=== PATIENT | female | born 1970 | race Caucasian/White ===

== ENCOUNTER 2016-12-10 17:02 | Emergency (ER) | payer BC, OTHER ==
[~2016-12-10] VITALS: Ht 177.8 cm; Wt 110.2 kg
[~2016-12-10 17:02] MED LIST: LISI-729 PO; METO25TA3 PO; SULI200T4 PO; VENL150C PO
[2016-12-10 17:04] VITALS: TEMP 36.8; Ht 177.8 cm; Wt 110.2 kg
--- NOTE | 2016-12-10 17:31 | EMERGENCY ROOM VISIT NOTE ---
History Report prepared by Huan: Kezia Solorzano Under the Supervision of: Dr. Jamir Farnsworth M.D. First contact with patient: 17:12 Chief Complaint: CARDIAC ASSESSMENT Stated Complaint: ACHEY CHEST/STERNUM Nursing Triage Summary: pt to the ED with c/o substernal chest pain today that goes down her chest no SOB no dizziness no n/v pt had ekg done yesterday History of Present Illness The patient is a 46 year old female who presents to the Emergency Room with complaints of persistent concern over an abnormal EKG earlier today. She saw her head animal keeper yesterday and had an EKG. She saw the report online which said that there was a septal infarct. She was unable to get in contact with her head animal keeper and came to the ED because she was concerned. She has been having intermittent chest pain since August 2015. She has been following with cardiology since. She has had stress tests and been monitored with a Holter monitor. In September 2015, she had a CT scan which revealed 2 spots of plaque. She denies any LOC or change in her chest pain. Her chest is currently aching which is normal for her. Source of History: patient Onset: earlier today Position: other (cardiac) Quality: other (abnormal EKG) Timing: other (persistent) Associated Symptoms: + chest pain, No LOC Review of Systems See HPI for pertinent positives & negatives. A total of 10 systems reviewed and were otherwise negative. Past Medical & Surgical Medical Problems: (1) Depression (2) Hypertension (3) Left ventricular hypertrophy Family History No pertinent family history stated. Social History Smoking Status: Never Smoker Marital Status: Housing Status: lives with family Occupation Status: employed Current/Historical Medications Scheduled Metoprolol Succ (Toprol Xl) (Toprol-Xl ), 200 MG PO DAILY Venlafaxine Hcl (Effexor Xr), 300 MG PO DAILY Allergies Coded Allergies: No Known Allergies (Unverified , 12/10/16) Physical Exam Vital Signs Date Time Temp Pulse Resp B/P Pulse Ox O2 Delivery O2 Flow Rate FiO2 12/10/16 18:31 76 18 144/98 96 12/10/16 17:04 36.8 87 16 170/109 98 Room Air Physical Exam GENERAL: Patient is very anxious appearing, periodically crying, and in no acute distress. HEENT: No acute trauma, normocephalic atraumatic, mucous membranes moist, no nasal congestion, no scleral icterus. NECK: No stridor, no adenopathy, no meningismus, trachea is midline. LUNGS: No dyspnea. Clear to auscultation and equal bilaterally. No wheeze, no rhonchi. HEART: Regular rate and rhythm. No murmurs, rubs, gallops appreciated. ABDOMEN: Soft, nontender, bowel sounds positive, no masses appreciated, no peritonitis. BACK: No midline tenderness, no CVA tenderness EXTREMITIES: Normal motion all extremities, no cyanosis, no edema. NEUROLOGIC: Alert and oriented, no acute motor or sensory deficits, no focal weakness, cranial nerves grossly intact. SKIN: No rash, no jaundice, no diaphoresis. Medical Decision & Procedures Laboratory Results Test 12/10/16 17:30 Bedside Troponin I 0.000 ng/ml (0-0.045) Laboratory results as reviewed by me. ECG Indication: chest pain Rate (beats per minute): 83 Rhythm: normal sinus Findings: no acute ischemic change, no ectopy, other (nonspecific T-wave abnormality) Comparison ECG Date: 17-Dec-2015 Change: Morphology is generally the same. ED Course 171: The patient was evaluated in room B4. A complete history and physical exam was performed. 1804: I discussed the patient's case with Dr. Duncan, [facility]. He states there is no evidence of acute ischemia on the EKG. He is agreeable to the patient being discharged home. 1805: I reevaluated the patient. She is resting comfortably. She is much relieved after our discussion. I discussed results and discharge instructions: She verbalized understanding and agreement. The patient is ready for discharge. Medical Decision Differential: Cardiac Ischemia (STEMI, NSTEMI, Unstable Angina, etc), Aortic Dissection, Arrhythmia, Pulmonary Embolism, Pneumonia, Pneumothorax, MSK, Infectious, Pericarditis/Myocarditis, Esophageal Rupture, Gastrointestinal, amongst other pathologies entertained. 46 yr old female arrives with complaint of chest pain for the last 1.5 years. Arrives because her medical web portal result for EKG said she had septal infarct. EKG similar here to previous. Trop negative. CTs in past are negative. No PE/Dissection findings. She is stable and feeling much relieved. Did touch base with [facility] head animal keeper as well. Consults Time Called: 1754 Consulting Physician: Dr. Duncan [facility] Returned Call: [phone] I discussed the patient's case with him. He states there is no evidence of acute ischemia on the EKG. He is agreeable to the patient being discharged home. Impression Primary Impression: Substernal chest pain Scribe Attestation The scribe's documentation has been prepared under my direction and personally reviewed by me in its entirety. I confirm that the note above accurately reflects all work, treatment, procedures, and medical decision making performed by me. Departure Information Dispostion Home / Self-Care Referrals Lydia Draper M.D. (PCP) Patient Instructions ED Chest Pain Atypical Unkn Cause, My [facility]
[2016-12-10] MEDS ORDERED: METO100T44 PO (18:08)
[2016-12-10 18:31] VITALS: BP 144/98; PULSE 76; O2SAT 96
== END 2016-12-10 18:33 | disposition home or self-care (01) ==
LOC: C.EDB 17:03
DX: R07.89 Other chest pain (principal); I10 Essential (primary) hypertension; I51.7 Cardiomegaly; Z79.899 Other long term (current) drug therapy

== ENCOUNTER 2024-04-09 06:32 | Observation (INO) ==
--- NOTE | 2024-03-02 09:46 | PAT Medication Instructions ---
Medication Instructions Date of Service March 02, 2024 Home Medications Medication Instructions Recorded oxycodone 5 mg tablet 5 mg PO Q6 PRN pain #15 tabs 10/01/23 meloxicam 15 mg tablet 15 mg PO DAILY #30 tabs 01/20/24 Medication List: metoprolol succinate 200 mg tablet,extended release 24 hr 200 mg PO QAM modafinil 100 mg tablet 200 mg PO DAILY PRN Drowsiness venlafaxine 150 mg tablet,extended release 24 hr 300 mg PO QAM lisinopril 10 mg tablet 10 mg PO QAM valacyclovir 500 mg tablet 500 mg PO QAM PRN cold sores oxycodone 5 mg tablet 5 mg PO Q6 PRN pain meloxicam 15 mg tablet 15 mg PO DAILY dicyclomine 10 mg capsule 10 mg PO BID PRN Abdominal Pain MEDICATION INSTRUCTIONS: ASK your surgeon for instructions meloxicam 15 mg tablet 15 mg PO DAILY DO NOT take the morning of surgery modafinil 100 mg tablet 200 mg PO DAILY PRN Drowsiness lisinopril 10 mg tablet 10 mg PO QAM dicyclomine 10 mg capsule 10 mg PO BID PRN Abdominal Pain Take morning of surgery With a small sip of water, OTHERWISE NOTHING TO EAT OR DRINK AFTER MIDNIGHT: venlafaxine 150 mg tablet,extended release 24 hr 300 mg PO QAM metoprolol succinate 200 mg tablet,extended release 24 hr 200 mg PO QAM valacyclovir 500 mg tablet 500 mg PO QAM PRN cold sores oxycodone 5 mg tablet 5 mg PO Q6 PRN pain Take evening before surgery valacyclovir 500 mg tablet 500 mg PO QAM PRN cold sores oxycodone 5 mg tablet 5 mg PO Q6 PRN pain Other Notes If you have any questions please call us at [phone] or [phone] or [phone] or [phone]
--- NOTE | 2024-03-15 14:32 | Anesthesiology Consultation ---
Date of Service March 15, 2024 Assessment & Plan (1) Encounter for pre-operative examination: - Infectious disease screening: Per assessment on 03/15/24: No known recent infectious disease contacts or current infectious disease symptoms. - Outpatient joint assessment: Pt currently scheduled for inpatient pathway. If surgeon requests review for outpatient joint pathway, patient is not recommended candidate for outpatient joint program from anesthesia standpoint based on available information. Chart Review Chart Review: Acceptable Risk for Surgery and Patient seen in Pre Admission Testing Teaching & Discussion Pre-Anesthesia Teaching/Discussion Notes: Instructed NPO after midnight before surgery,except medications with 15 cc of water. Medication instructions provided according to the PAT guidelines. History Surgery Operation Date: 04/09/24 10:10 Proposed Procedures p Right Total Knee Arthroplasty - Zbigniew Trinh, Height/Weight Height: 5 ft 10 in Weight: 114.6 kg Allergies Allergy/AdvReac Type Severity Reaction Status Date / Time nickel Allergy Mild Skin Verified 03/10/24 13:09 redness Medications Home Medications Medication Instructions Recorded Confirmed Last Taken metoprolol succinate 200 mg 200 mg PO QAM 07/07/18 02/27/24 10/01/23 06:00 tablet,extended release 24 hr modafinil 100 mg tablet 200 mg PO DAILY PRN Drowsiness 07/07/18 02/27/24 10/01/23 06:00 venlafaxine 150 mg tablet,extended 300 mg PO QAM 07/07/18 02/27/24 10/01/23 06:00 release 24 hr lisinopril 10 mg tablet 10 mg PO QAM 07/22/19 02/27/24 10/01/23 06:00 valacyclovir 500 mg tablet 500 mg PO QAM PRN cold sores 09/08/23 02/27/24 10/01/23 06:00 oxycodone 5 mg tablet 5 mg PO Q6 PRN pain #15 tabs 10/01/23 02/27/24 Unknown meloxicam 15 mg tablet 15 mg PO DAILY #30 tabs 01/20/24 02/27/24 Unknown dicyclomine 10 mg capsule 10 mg PO BID PRN Abdominal Pain 02/27/24 02/27/24 Unknown Past Medical History Medical History Depression GERD (gastroesophageal reflux disease) occasional - OTC prn History of COVID-19 09/2021- symptoms resolved History of ventricular tachycardia 5 beats noted on 2021 ZioPatch monitor F/u with EP as needed per 11/2022 EP evaluation HTN (hypertension) Hx of supraventricular tachycardia Controlled with beta julio F/u with EP as needed per 11/2022 EP evaluation Idiopathic hypersomnia Modafinil PRN Left ventricular hypertrophy Follows with Dr. Guerrero ([place]) Echo 2019: "Mild hypertrophy" Obesity Sleep apnea CPAP (compliant) Exercise / Class Metabolic Activity III < 4 Walking/Shop/Light housework (one FS: No CP, + SOB) Past Family History Family History Other No family history of adverse response to anesthesia Past Surgical History Surgical History History of arthroscopic surgery of elbow Left History of cholecystectomy History of colonoscopy History of surgery Left Long Finger Excision of Mucous Cyst (07/27/19): MAC at [facility] [place] History of tenotomy (10/01/23) percutaneous, left achilles, [facility] Hx of basal cell carcinoma excision Hx of wisdom tooth extraction Past Anesthesia History No Hx of Anesthesia Complications * Daughter: "very ill" post-op History of PONV No Hx of PONV and Hx of Motion Sickness (occasional) Social History Smoking Status: Never smoker Do You Dip or Chew Tobacco: No Hx Alcohol Use: Yes Alcohol type: wine (once per week) Hx Substance Use: No substance use type: does not use Review of Systems Intermittent palpitations. Patient denies chest pain, shortness of breath, fever, chills, cough, wheezing. Physical Exam Vital Signs BP 110/75 P 84 TEMP 98.0 SP02 96%RA RESP 18 Physical Full cervical extension range of motion. Full TMJ range of motion. TMD > 3.5 finger breaths Mallampati Score I Dentition: intact Lungs: clear throughout to auscultation Cardiac: regular rate and rhythm, no murmurs noted Spine: normal Carotid arteries: negative bruit Extremities: no LE edema Lab Results Anesthesia Preop Results Results Anesthesia Widget: WBC 5.27 K/ul (4.8-10.8) 03/15/24 Hgb 13.9 g/dl (12.0-16.0) 03/15/24 Hct 41.4 % (37.0-47.0) 03/15/24 Plt 260 K/uL (130-400) 03/15/24 Na 141 mmol/L (136-145) 03/15/24 K 4.4 mmol/L (3.5-5.1) 03/15/24 Cl 105 mmol/L (98-107) 03/15/24 CO2 28 mmol/L (21-32) 03/15/24 BUN 20 mg/dl (6-23) 03/15/24 Creat 0.89 mg/dl (0.6-1.2) 03/15/24 Glucose Level 133 mg/dl (70-99(Fasting)) H 03/15/24 PT 10.6 Seconds (9.0-12.0) 03/15/24 PTT 24 Seconds (21-31) 03/15/24 INR 1.0 (0.9-1.1) 03/15/24 Blood Type O Positive 03/15/24 Antibody Screen NEGATIVE 03/15/24 Testing Electrocardiogram Date: 03/15/24 NSR at 78bpm. NS TWA. No significant change compared to 07/07/2018 per strip roller comparison. Chest X-Ray Date: 03/15/24 Findings: + NAD Echocardiogram Date: 2019 "NA in 2019 showed EF of 65-70% with mild hypertrophy and grade I diastolic dysfunction." per 11/2022 EP office visit note (attempts to obtain official report unsuccessful)
--- NOTE | 2024-04-08 11:01 | History & Physical Report ---
Date of Service April 08, 2024 Assessment & Plan (1) Osteoarthritis of right knee: We will proceed with a right total knee arthroplasty. Postoperatively she will be started on aspirin for DVT prophylaxis and kept overnight in the hospital for postop medical management. She plans to use [facility] for therapy upon discharge. History of Present Illness Chief Complaint: Osteoarthritis of the right knee. Primary Care Provider: Suri Osorio MD Rachael is a pleasant 53-year-old female who has been dealing with chronic increasing right knee pain. 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 Her knee has been bothering her for 10 years. She has failed conservative treatment including injections and therapy. After failing extensive conservative treatment, she has elected proceed with a right total knee arthroplasty. Allergies Allergy/AdvReac Type Severity Reaction Status Date / Time nickel Allergy Mild Skin Verified 03/10/24 13:09 redness Home Medications Medication Instructions Recorded Confirmed Type metoprolol succinate 200 mg 200 mg PO QAM 07/07/18 02/27/24 History tablet,extended release 24 hr modafinil 100 mg tablet 200 mg PO DAILY PRN Drowsiness 07/07/18 02/27/24 History venlafaxine 150 mg tablet,extended 300 mg PO QAM 07/07/18 02/27/24 History release 24 hr lisinopril 10 mg tablet 10 mg PO QAM 07/22/19 02/27/24 History valacyclovir 500 mg tablet 500 mg PO QAM PRN cold sores 09/08/23 02/27/24 History oxycodone 5 mg tablet 5 mg PO Q6 PRN pain #15 tabs 10/01/23 02/27/24 Rx meloxicam 15 mg tablet 15 mg PO DAILY #30 tabs 01/20/24 02/27/24 Rx dicyclomine 10 mg capsule 10 mg PO BID PRN Abdominal Pain 02/27/24 02/27/24 History Past Med/Surg History Problem List (Updated 04/08/24 @ 11:01 by Zbigniew Trinh DO) Osteoarthritis of right knee Encounter for pre-operative examination Depression Hypertension Medical History History of ventricular tachycardia 5 beats noted on 2021 ZioPatch monitor F/u with EP as needed per 11/2022 EP evaluation Idiopathic hypersomnia Modafinil PRN Obesity Left ventricular hypertrophy Follows with Dr. Guerrero ([place]) Echo 2019: "Mild hypertrophy" HTN (hypertension) Depression Hx of supraventricular tachycardia Controlled with beta julio F/u with EP as needed per 11/2022 EP evaluation History of COVID-19 09/2021- symptoms resolved GERD (gastroesophageal reflux disease) occasional - OTC prn Sleep apnea CPAP (compliant) Surgical History History of surgery Left Long Finger Excision of Mucous Cyst (07/27/19): MAC at [facility] [place] History of tenotomy (10/01/23) percutaneous, left achilles, [facility] Hx of basal cell carcinoma excision Hx of wisdom tooth extraction History of arthroscopic surgery of elbow Left History of cholecystectomy History of colonoscopy Family History Other No family history of adverse response to anesthesia Social History Smoking Status: Never smoker Second Hand Exposure: No; Do You Dip or Chew Tobacco: No; Tobacco Cessation Education Requested by Patient: No Hx Alcohol Use: Yes Alcohol type: wine (once per week) Hx Substance Use: No Preferred Language: Argentine Communication Ability: Effective Thermostat Machine Tender Required: No Beliefs That Will Affect Care: None Current Living Situation: Spouse and Family Other Information That Helps Us Care for You: No Feels Safe at Home: Yes Safety Concerns: Feels Safe At This Time Assistive Devices: CPAP and Glasses Review of Systems All systems reviewed & are unremarkable except as noted in HPI & below. Physical Exam On physical examination of the right knee, she has good range of motion 0-120 Trae. She has tenderness palpation of the distal femoral condyle.. Constitutional WD/WN, vitals as above Eyes PERRL, conjunctivae normal, anicteric sclerae ENMT external ear and nose normal, oropharynx normal Neck trachea midline, no thyromegaly Respiratory normal respiratory effort Cardiovascular RRR, no murmur, no edema Gastrointestinal (Abdomen) normal bowel sounds, soft, nontender, no hepatosplenomegaly Psychiatric A+Ox3, euthymic affect Results & Data Results & Data Laboratory Results . Diagnostic Findings X-rays of the right knee show advanced osteoarthritis with joint space narrowing, osteophyte formation, and [id number] tubulation. PG Care Time/CCT Total # of Minutes Spent Total Time Spent with Patient: Total time spent is greater than 50% in coordination of care (as documented) at patient's floor/unit and/or counseling patient: Coding Level of Care Code None Diagnoses Osteoarthritis of right knee M17.11
[~2024-04-09 06:32] MED LIST changes: +BUPIVACAINE 0.25% PF 30 ML VIAL ONE; +BUPIVACAINE 0.5 % 5 MG/1 ML PF 10ML VIAL ONE; -LISI-729 PO; -METO25TA3 PO; -SULI200T4 PO; -VENL150C PO
--- NOTE | 2024-04-09 06:35 | History & Physical Bridge Note ---
Date of Service April 09, 2024 History & Physical Bridge Note I have examined the patient, reviewed the History & Physical and in the interval since the performance of the History & Physical I have noted the following changes of clinical significance: no changes noted
--- OUTSIDE RECORDS SUMMARY | 2024-04-09 06:39 | External Medical Summary | Summary of Care ---
Author Name Unknown Organization [facility] Address [address] [place] [address] Phone [phone] Care Team Providers Care Dehydration Unit Operator Name Role Phone Suri Osorio MD Primary Care Provider [phone] Reason for Visit * Reason Comments eRx-Medication Refill Encounter Details Date Type Department Care Team (Late st Contact Info) Description 2024 Refill Neurology [facility] [address] [place] [address] Dakota Slade, [address] [place] [address] Allergies Active Allergy Reactions Criticality Noted Date Comments Cat Dander 04/12/2021 Dog Dander 04/12/2021 Nickel Low 10/01/2023 Other Reaction(s): Redness of Skin Pollen 04/12/2021 documented as of this encounter (statuses as of 2024) Medications Medication Sig Dispensed Refills Start Date End Date Status MULTI-VITAMIN PO TABS 1 tablet daily Active venlafaxine XR (EFFEXOR XR) 150 MG CP24 Two tablets daily 90 Cap 3 09/08/2015 Active olopatadine (PATANOL) 0.1 % ophthalmic solutionIndicat ions:Allergic conjunctivitis, bilateral Instill 1 Drop into both eyes every 8 hours. For eye itching. 1 Bottle 3 01/01/2016 Active Metoprolol Succinate ER 200 MG TB24 Take 1 Tablet by mouth in the morning. 30 Tab 5 07/14/2018 Active fexofenadine (VINCENT) 180 MG TabletIndicatio ns:Urticaria due to heat Take 1 Tab by mouth daily as needed for Allergies. 30 Tab 11 09/28/2019 Active traZODone (DESYREL) 100 MG Tablet Take 1 Tablet by mouth at bedtime. Takes 1/2 tab daily Active Denavir 1 % External Cream (Penciclovir)In dications:Herpe s simplex virus infection Apply topically to affected area every 2 hours while awake . apply to cold sores for 4 days. 1.5 g 5 01/24/2022 Active modafinil 50 OR TABS Take by mouth daily. Active Dicyclomine HCl 10 MG Oral Capsule (Bentyl)Indicat ions:Irritable bowel syndrome with diarrhea TAKE 1 CAPSULE BY MOUTH 4 TIMES A DAY BEFORE MEALS AND AT BEDTIME FOR ABDOMINAL PAIN 120 Capsule 5 01/05/2024 Active Lisinopril 10 MG Oral Tablet (Prinivil)Indic ations:HTN, goal below 140/90 TAKE 1 TABLET BY MOUTH EVERY DAY IN THE MORNING 90 Tablet 3 01/22/2024 Active valACYclovir HCl 500 MG Oral Tablet (Valtrex)Indica tions:Herpes simplex virus infection TAKE 1 TABLET BY MOUTH IN THE MORNING FOR TRANSMISSION REDUCTION 90 Tablet 3 02/17/2024 Active Gabapentin 300 MG Oral Capsule (Neurontin) TAKE 1 CAPSULE BY MOUTH EVERYDAY AT BEDTIME 30 Capsule 2024 Active Gabapentin 300 MG Oral Capsule (Neurontin) TAKE 1 CAPSULE BY MOUTH EVERYDAY AT BEDTIME 30 Capsule 02/09/2024 04/05/20 24 Discontinued documented as of this encounter (statuses as of 2024) Active Problems Problem Noted Date Diagnosed Date Class 1 obesity due to exces s calories with serious comorbidity and body mass index (BMI) of 34.0 to 34.9 in adult 12/02/2023 Irritable bowel syndrome with diarrhea Mild cognitive impairment 12/02/2023 Paroxysmal sinus tachycardia 01/10/2023 Hyperglycemia 01/10/2023 Herpes simplex virus infection 01/24/2022 Primary hypersomnia 01/24/2022 Hemorrhoids, external without complications 06/19 SUELLEN on CPAP 03/07/2017 Hypertensive left ventricula r hypertrophy, without heart failure 01/01/2016 Sinus tachycardia 10/18/2015 HTN, goal below 140/90 11/04/2014 Bronchospasm, exercise-induced 03/07/2005 Mild episode of recurrent major depressive disor maverick 03/07/2005 Seasonal allergic rhinitis due to pollen 005 documented as of this encounter (statuses as of 2024) Resolved Problems Problem Noted Date Diagnosed Date Resolved Date Prediabetes 01/27/2023 12/31/2023 Overview: Per Prediabetes protocol Snoring 01/19/2016 03/07/2017 MANRIQUEZ (dyspnea on exertion) 10/18/2015 documented as of this encounter (statuses as of 2024) Immunizations Name Administration Dates Next Due COVID-19 mRNA, LNP-s, No Pre serve, 2-Dose Series ([employer]) 05/30/2021,10/26/2020,09/30/2020 COVID-19, LNP-s, No Preserve , Get-sucrose, Ages 12+ (Pfizer) 01/25/2022 Covid-19, Mrna, Lnp-s, Pf, B ivalent, 30 Mcg, IM, 12 yrs and above (Pfizer) 06/11/2022 H1N1 2009 Influenza, IM 05/18/2009 HEP A - Hepatitis A (Adult > 18 yrs) 02/04/2007, 04/16/2006 Hepatitis B Vaccine, Recombi nant, Adjuvanted, 20 mcg/mL (Heplisav-B) 01/10/2023 Pneumococcal Conjugate Vacci ne, 20-valent ([id number]) 07/30/2022 Pneumococcal Polysaccharide PPV23 (Pneumovax) 06/13/2009 Seasonal Influenza Virus Vac cine, Unspecified Formulation 06/06/2019,07/14/2018 Seasonal Influenza, PF, 6 M & above, IM , (FluLaval or Fluzone) 04/29/2022,05/17/2021,04/12/2020,07/14,07/08/2017 Seasonal Influenza, Split, I IV3, With Preserve, Inj 05/08/2016,05/19/2015,08/01/2014,05/20,06/01/2011,06/19/2010,05/18/2009 TD - Tetanus/Diptheria (ADULT) 04/16/2006 TDAP (age 10 and older)(Boostrix) 07/30/2022,06/2012 Typhoid Vaccine Oral (Vivotif) 04/16/2006 Yellow Fever Vaccine, Live (YF-Vax) 07/24/2010 Zoster Vaccine Recombinant (Shingrix) 04/12/2020 ,09/28/2019 documented as of this encounter Social History Tobacco Use Types Packs/Day Years Used Date Smoking Tobacco: Never Passive Smoke Exposure: Never Smokeless Tobacco: Never Comments:no passive smoke ex posures Alcohol Use Standard Drinks/Week Comments Yes 0 (1 standard drink = 0.6 oz pur e alcohol) 1 drink/week PHQ-2 Answer Date Recorded PHQ Adult Total Score 0 07/30/2022 Hunger Vital Sign Answer Date Recorded Within the past 12 months, y ou worried that your food would run out before you got the money to buy more. Never true 01/11/20 23 Within the past 12 months, t he food you bought just didn't last and you didn't have money to get more. Never true 01/10/2023 Utilities Answer Date Recorded Do you have trouble paying y our heating, water, or electric bill? (Adult - for ages 18 years and over) Not on file 02/03/2024 Is your family able to pay t he heat, water, or electric bill? (Household - for ages 0-17 years) Not on file 02/03/2024 Does your family have access to good internet? (Household - for ages 0-17 years) Not on file 02/03/2024 Social Connections Answer Date Recorded How often do you feel lonely or isolated from those around you? (Adult - for ages 18 years and over) Not on file 02/03/2024 Sex and Gender Information Value Date Recorded Sex Assigned at Female 05/21/2021 7:12 PM EDT Gender Identity Female 05/21/2021 7:12 PM EDT Sexual Orientation Straight 05/21/2021 7: 12 PM EDT Job Start Date Occupation Industry Not on file Not on file Not on file documented as of this encounter Miscellaneous Notes * Telephone Encounter - Dakota Slade, - 2024 2:46 PM EDT Signed Prescriptions: Disp Refills Gabapentin 300 MG Oral Capsule (Neurontin) 30 Cap*0 Sig: TAKE 1 CAPSULE BY MOUTH EVERYDAY AT BEDTIME Authorizing Provider: DAKOTA SLADE * Telephone Encounter - Almita Kramer LPN - 2024 2:42 PM EDTPending Prescriptions: Disp Refills Gabapentin 300 MG Oral Capsule [Pharmacy M*30 Cap*0 Sig: TAKE 1 CAPSULE BY MOUTH EVERYDAY AT BEDTIME * Telephone Encounter - Gina Daniel two - 2024 2:22 PM EDTPending Prescriptions: Disp Refills Gabapentin 300 MG Oral Capsule [Pharmacy M*30 Cap*0 Sig: TAKE 1 CAPSULE BY MOUTH EVERYDAY AT BEDTIME * Telephone Encounter - Gina Daniel two - 2024 2:20 PM EDT Did you pend patient's preferred pharmacy and medication before forwarding?yes Pharmacy: [id number] [address] [place] [address] Pending Prescriptions: Disp Refills Gabapentin 300 MG Oral Capsule (Neurontin*30 Cap*0 Sig: TAKE 1 CAPSULE BY MOUTH EVERYDAY AT BEDTIME Last Visit: 11/13/2023 (in office), Visit date not found (telemedicine) Next Visit: Visit date not found If no future appointments scheduled, and last appointment is greater than a year ago, please schedule patient for a follow-up appointment Last date the medication was ordered: 02/09/2024 Is this request for a controlled substance?No Urine Drug Screen:No results found for this or any previous visit. Patient Phone Numbers Labs: Lab Results Component Value Date/Time CREAT 0.9 11/07/2023 12:29 PM CREAT 1.1 (H) 09/24/2019 08:06 AM POTASSIUM 4.7 11/07/2023 12:29 PM POTASSIUM 4.0 09/24/2019 08:06 AM TSH 1.91 12/02/2023 02:17 PM TSH 3.00 09/10/2018 12:22 PM LDLCALC 116 12/02/2023 02:17 PM LDLCALC 112 12/23/2017 12:47 PM LDLDIRECT NOT APPLICABLE 12/23/2017 12:47 PM ALT 39 (H) 12/02/2023 02:17 PM ALT 29 09/10/2018 12:22 PM HGBA1C 5.6 12/02/2023 02:17 PM HGBA1C 5.4 09/28/2019 01:11 PM documented in this encounter Plan of Treatment Upcoming Encounters Date Type Department Care Team (Late st Contact Info) Description 06/08/2024 2:00 PM EDT Office Visit Family Practice [facility] [address] [place] [address] Suri Osorio MD [address] [place] [address] Scheduled Procedures Name Priority Associated Diagnoses Date/Ti me COLONOSCOPY FLEXIBLE PROXIMA L DIAGNOSTIC Recall Encounter for screening colonoscopy Health Maintenance Due Date Last Done Comments HPV/Co-Test 1998 Cologuard 2013 Fecal Occult Blood Test 2013 Sigmoidoscopy 2013 Hepatitis B Vaccine (2 of 2 - CpG 2-dose series) 02/07/2023 01/10/2023 COVID-19 Vaccine (6 - season) 2023 06/11/2022, 01/25/2022, 05/30/2021, Additional history exists Depression Monitoring 07/30/2023 07/30/2022 Influenza Vaccine (FLU shot) (#1) 2024 04/29/2022, 05/17/2021, 04/12/2020, Additional history exists GFR 11/06/2024 11/07/2023, 07/18, 06/20/2022, Additional history exists Mammogram 03/19/2025 03/19/2024, 08/2022, 09/25/2022, Additional history exists Cervical Cancer Screening 05/17/2025 Pap Smear 05/17/2025 05/17/2020, 04/19, 11/21/2011, Additional history exists Albumin/Creatinine Ratio 01/10/2026 01/10/2023 Diabetes Screening 12/01/2026 12/02/2023, 0 11/07/2023, 01/10/2023, Additional history exists Colonoscopy 06/30/2028 06/30/2018, 06/30/2018 Colorectal Cancer Screening 06/30/2028 Lipid Panel 12/01/2028 12/02/2023, 07/18, 12/23/2017, Additional history exists DTaP,Tdap,and Td Vaccines (3 - Td or Tdap) 07/30/2032 07/30/2022, 05/28/2012, 04/16/2006 Zoster Vaccines Completed 04/12/2020, 09/28/2019 Pneumococcal Vaccine: Pediatrics (0 to 5 Years) and At-Risk Patients (6 to 64 Years) Completed 07/30/2022, 06/13/2009 HPV (Gardasil) Vaccine Aged Out No lo nger eligible based on patient's age to complete this topic MENINGOCOCCAL (MENACTRA/MENVEO) Aged Out No longer eligible based on patient's age to complete this topic documented as of this encounter Medical Devices Not on filedocumented as of this encounter Care Teams Dehydration Unit Operator Relationship Specialty Start Date End Date Suri Osorio MD [address] [place] [address] PCP - General Family Medicine 12/02/23 documented as of this encounter
--- OUTSIDE RECORDS SUMMARY | 2024-04-09 06:39 | External Medical Summary | Summary of Care ---
Author Name Unknown Organization [facility] Address [address] [place] [address] Phone [phone] Care Team Providers Care Table Setter Name Role Phone Suri Osorio MD Primary Care Provider [phone] Reason for Visit * Reason Onset Date Comments Nurse Documentation 03/17/2024 Advance Care Planning/ [employer] Encounter Details Date Type Department Care Team (Late st Contact Info) Description 03/17/2024 Telephone Care Coordination [address] [place], [place] [id number] Masha Leal LPN Nurse Documentation (Advance Care Planning... Allergies Active Allergy Reactions Criticality Noted Date Comments Cat Dander 04/12/2021 Dog Dander 04/12/2021 Nickel Low 10/01/2023 Other Reaction(s): Redness of Skin Pollen 04/12/2021 documented as of this encounter (statuses as of 03/18/2024) Medications Medication Sig Dispensed Refills Start Date End Date Status MULTI-VITAMIN PO TABS 1 tablet daily Active venlafaxine XR (EFFEXOR XR) 150 MG CP24 Two tablets daily 90 Cap 3 09/08/2015 Active olopatadine (PATANOL) 0.1 % ophthalmic solutionIndicatio ns:Allergic conjunctivitis, bilateral Instill 1 Drop into both eyes every 8 hours. For eye itching. 1 Bottle 3 01/01/2016 Active Metoprolol Succinate ER 200 MG TB24 Take 1 Tablet by mouth in the morning. 30 Tab 5 07/14/2018 Active fexofenadine (VINCENT) 180 MG TabletIndications :Urticaria due to heat Take 1 Tab by mouth daily as needed for Allergies. 30 Tab 11 09/28/2019 Active traZODone (DESYREL) 100 MG Tablet Take 1 Tablet by mouth at bedtime. Takes 1/2 tab daily Active Denavir 1 % External Cream (Penciclovir)Monika cations:Herpes simplex virus infection Apply topically to affected area every 2 hours while awake . apply to cold sores for 4 days. 1.5 g 5 01/24/2022 Active modafinil 50 OR TABS Take by mouth daily. Active Dicyclomine HCl 10 MG Oral Capsule (Bentyl)Indicatio ns:Irritable bowel syndrome with diarrhea TAKE 1 CAPSULE BY MOUTH 4 TIMES A DAY BEFORE MEALS AND AT BEDTIME FOR ABDOMINAL PAIN 120 Capsule 5 01/05/2024 Active Lisinopril 10 MG Oral Tablet (Prinivil)Indicat ions:HTN, goal below 140/90 TAKE 1 TABLET BY MOUTH EVERY DAY IN THE MORNING 90 Tablet 3 01/22/2024 Active Gabapentin 300 MG Oral Capsule (Neurontin) TAKE 1 CAPSULE BY MOUTH EVERYDAY AT BEDTIME 30 Capsule 02/09/2024 Active valACYclovir HCl 500 MG Oral Tablet (Valtrex)Indicati ons:Herpes simplex virus infection TAKE 1 TABLET BY MOUTH IN THE MORNING FOR TRANSMISSION REDUCTION 90 Tablet 3 02/17/2024 Active documented as of this encounter (statuses as of 03/18/2024) Active Problems Problem Noted Date Diagnosed Date [...] as of this encounter (statuses as of 03/18/2024) Resolved Problems Problem Noted Date Diagnosed Date Resolved Date Prediabetes 01/27/2023 12/31/2023 Overview: Per Prediabetes protocol Snoring 01/19/2016 03/07/2017 MANRIQUEZ (dyspnea on exertion) 10/18/2015 documented as of this encounter (statuses as of 03/18/2024) Immunizations Name Administration Dates Next Due COVID-19 mRNA, LNP-s, No Pre serve, 2-Dose Series ([employer]) 05/30/2021,10/26/2020,09/30/2020 COVID-19, LNP-s, No Preserve , Get-sucrose, Ages 12+ (Pfizer) 01/25/2022 Covid-19, Mrna, Lnp-s, Pf, B ivalent, 30 Mcg, IM, 12 yrs and above ([employer]) 06/11/2022 H1N1 2009 Influenza, IM 05/18/2009 HEP A - Hepatitis A (Adult > 18 yrs) 02/04/2007, 04/16/2006 Hepatitis B Vaccine, Recombi nant, Adjuvanted, 20 mcg/mL (Heplisav-B) 01/10/2023 Pneumococcal Conjugate Vacci ne, 20-valent ([id number]) 07/30/2022 Pneumococcal Polysaccharide PPV23 (Pneumovax) 06/13/2009 Seasonal [...] encounter Miscellaneous Notes * Telephone Encounter - Masha Leal LPN - 03/18/2024 9:51 AM EDT Left VM message in follow up to request for advance care planning assistance/discussion. Masha Leal LPN [employer] [facility] [employer] [employer] [phone] * ACP (Advance Care Planning) - Masha Leal LPN - 03/17/2024 3:26 PM EDT [employer] team received email inquiry for information on advance care planning. Email reply sent with ACP bookletalong with direct contact information. documented in this encounter Plan of Treatment Upcoming Encounters Date Type Department Care Team (Late st Contact Info) Description 03/19/2024 9:00 AM EDT Imaging Radiology [address] [facility] [place] [address] 06/08/2024 2:00 PM EDT Office Visit Family Practice [facility] [address] [facility] [place] [address] Suri Osorio MD [address] [facility] [place] [address] Scheduled Procedures Name Priority Associated Diagnoses Date/Ti me COLONOSCOPY FLEXIBLE PROXIMA L DIAGNOSTIC Recall Encounter for screening colonoscopy Health Maintenance Due Date Last Done Comments HPV/Co-Test 1998 Cologuard 2013 Fecal Occult Blood Test 2013 Sigmoidoscopy 2013 Hepatitis B Vaccine (2 of 2 - CpG 2-dose series) 02/07/2023 01/10/2023 COVID-19 Vaccine ( season) 2023 06/11/2022, 01/25/2022, 05/30/2021, Additional history exists Depression Monitoring 07/30/2023 07/30/2022 Mammogram 03/18/2024 03/18/2023, 02/0 03/2023, 09/16/2022, Additional history exists Influenza Vaccine (FLU shot) (#1) 2024 04/29/2022, 05/17/2021, 04/12/2020, Additional history exists GFR 11/06/2024 11/07/2023, 07/18, 06/20/2022, Additional history exists Cervical Cancer Screening 05/17/2025 [...] filedocumented as of this encounter Care Teams Table Setter Relationship Specialty Start Date End Date Suri Osorio MD [address] [place] [address] PCP - General Family Medicine 12/02/23 documented as of this encounter
--- OUTSIDE RECORDS SUMMARY | 2024-04-09 06:40 | External Medical Summary | Summary of Care ---
Author Name Unknown Organization [facility] Address [address] [place] [address] Phone [phone] Care Team Providers Care Routeman Name Role Phone Suri Osorio MD Primary Care Provider [phone] Reason for Visit * Reason Onset Date Comments Nurse Documentation 03/17/2024 Advance Care Planning/ [facility] Encounter Details Date Type Department Care Team (Late st Contact Info) Description 03/17/2024 Telephone Care Coordination [address] [place], [place] [phone] Masha Leal LPN Nurse Documentation (Advance Care Planning... Allergies Active Allergy Reactions Criticality Noted Date Comments Cat Dander 04/12/2021 Dog Dander 04/12/2021 Nickel Low 10/01/2023 Other Reaction(s): Redness of Skin Pollen 04/12/2021 documented as of this encounter (statuses as of 03/17/2024) Medications Medication Sig Dispensed Refills Start Date [...] as of this encounter (statuses as of 03/17/2024) Active Problems Problem Noted Date Diagnosed Date [...] as of this encounter (statuses as of 03/17/2024) Resolved Problems Problem Noted Date Diagnosed Date Resolved Date Prediabetes 01/27/2023 12/31/2023 Overview: Per Prediabetes protocol Snoring 01/19/2016 03/07/2017 MANRIQUEZ (dyspnea on exertion) 10/18/2015 documented as of this encounter (statuses as of 03/17/2024) Immunizations Name Administration Dates Next Due COVID-19 mRNA, LNP-s, No Pre serve, 2-Dose Series ([employer]) 05/30/2021,10/26/2020,09/30/2020 COVID-19, LNP-s, No Preserve , Get-sucrose, Ages 12+ (Pfizer) 01/25/2022 Covid-19, Mrna, Lnp-s, Pf, B ivalent, 30 Mcg, IM, 12 yrs and above ([employer]) 06/11/2022 H1N1 2009 Influenza, IM 05/18/2009 HEP A - Hepatitis A (Adult > 18 yrs) 02/04/2007, 04/16/2006 Hepatitis B Vaccine, Recombi nant, Adjuvanted, 20 mcg/mL (Heplisav-B) 01/10/2023 Pneumococcal Conjugate Vacci ne, 20-valent ([id number]) 07/30/2022 Pneumococcal Polysaccharide PPV23 (Pneumovax) 06/13/2009 Seasonal [...] as of this encounter Miscellaneous Notes * ACP (Advance Care Planning) - Masha Leal LPN - 03/17/2024 3:26 PM EDT [facility] team received email inquiry for information on advance care planning. Email reply sent with ACP bookletalong with direct contact information. documented in this encounter Plan of Treatment Upcoming Encounters Date Type Department Care Team (Late st Contact Info) Description 03/19/2024 9:00 AM EDT Imaging Radiology [address] [place] [address] 06/08/2024 2:00 PM EDT [facility] [address] [facility] [place] [address] Suri Osorio MD [address] [facility] [place] [address] Scheduled Procedures Name Priority Associated Diagnoses Date/Ti [...] (6 to 64 Years) Completed 07/30/2022, 06/13/2009 HIV Screening Completed 12/02/2023 Hepatitis C Screening Completed 12/02/2023 , 12/02/2023, 12/02/2023 HPV (Gardasil) Vaccine Aged Out No lo nger eligible based on patient's age to complete this topic MENINGOCOCCAL (MENACTRA/MENVEO) Aged Out No longer eligible based on patient's age to complete this topic documented as of this encounter Medical Devices Not on filedocumented as of this encounter Care Teams Routeman Relationship Specialty Start Date End Date Suri Osorio MD [address] [facility] [place] [address] PCP - General Family Medicine 12/02/23 documented as of this encounter
[2024-04-09] MEDS: GABAPENTIN 600 MG DOSE PO SCH (07:02)
[2024-04-09] MEDS: ACETAMINOPHEN 500 MG TAB PO SCH ×2 (07:02→13:27)
[2024-04-09] MEDS: FAMOTIDINE 20 MG TAB PO SCH (07:03)
[2024-04-09] MEDS: LR 60ML/HR IV SCH (07:03)
[2024-04-09] MEDS ORDERED: MIDAZOLAM HCL 1 MG/ML 2ML VIAL ONE ×2 (07:10→07:11)
[2024-04-09] MEDS ORDERED: fentaNYL citrate PF 100 MCG/2 ML VIAL ONE (07:11)
[2024-04-09] MEDS: dexAMETHasone**PF** 10 MG/ML VIAL IV SCH (07:12)
[2024-04-09] MEDS: LR 500ML BOLUS, THEN 15ML/HR IV SCH (07:13)
[2024-04-09] MEDS ORDERED: ONDANSETRON INJ 2 MG/ML 2 ML VIAL ONE (07:18)
[2024-04-09] MEDS ORDERED: PROPOFOL IV EMULSION 10 MG/ML 20 ML VIAL IV ONE ×2 (07:18→09:02)
[2024-04-09] MEDS ORDERED: LIDOCAINE 2% 2 ML VIAL/AMP(20MG/ML) INFIL ONE (07:18)
[2024-04-09] MEDS ORDERED: ATROPINE SULFATE 0.1 MG/ML 10ML SYR IV PRN (07:19)
[2024-04-09] MEDS ORDERED: PROMETHAZINE HCL 6.25 MG in SODIUM CHLORIDE 0.9% 50 ML IV PRN (07:19)
[2024-04-09] MEDS ORDERED: ONDANSETRON INJ 2 MG/ML 2 ML VIAL IV PRN ×2 (07:19→10:51)
[2024-04-09] MEDS ORDERED: ePHEDrine sulfate 50 MG/ML AMP IV PRN (07:19)
[2024-04-09] MEDS ORDERED: fentaNYL citrate PF 100 MCG/2 ML VIAL IV PRN (07:19)
[2024-04-09] MEDS: TRANEXAMIC ACID 1,000 MG **IV Pre-op IV SCH (07:42)
[2024-04-09] MEDS: ceFAZolin 2000MG 2,000 MG/15 ML SYR IV SCH ×2 (07:55→16:09)
[2024-04-09] MEDS: ROPIV 0.5% 246mg, Ketorolac 30mg, EPINEPHrine 0.5mg in NSS INFIL SCH (08:31)
[2024-04-09] MEDS: ORTHO JOINT ANESTHETIC ONE (08:32)
[2024-04-09] MEDS: TRANEXAMIC ACID 1,000 MG **IV Intra-op IV SCH (08:59)
--- NOTE | 2024-04-09 09:20 | Operative Report ---
PG Post Operative Report Pre & Post Diagnosis Operation Date: 04/09/24 08:00 Pre-Op Diagnosis: Right Knee Degenerative Joint Disease Post-Op Diagnosis: Right Knee Degenerative Joint Disease I identified the patient and participated in the time-out.: Yes Procedure Operation Date: 04/09/24 08:00 Actual Procedures p Right Total Knee Arthroplasty(Right) - Zbigniew Trinh DO Surgeon Zbigniew Trinh DO [employer] Zbigniew Tiwari PA-C Estimated Blood Loss 30 Findings Consistent with Post-Op Diagnosis Specimens Right femoral tibial bone Description of Procedure Implants used: I used a Michael Persona total knee arthroplasty system with a size 7 standard PS femur, E tibia, 31 oval 12 CPS patella, and a size polyethylene bearing. All components were cemented in place with Biomet cement. Rachael arrived [facility] for the above procedure. She was seen in the preoperative holding area and the operative extremity was identified and signed. She was given a preoperative antibiotic, TXA, a spinal anesthetic and an adductor nerve block. She was taken back to the operating room and laid on the table in supine position. She was given basic sedation. The operative knee was then prepped and draped in sterile fashion. A timeout was done, and the patient and the operative extremity was properly identified. A midline incision was made directly over the patella. Dissection was taken down to the extensor mechanism. A subvastus arthrotomy was used. The medial retinaculum was released and the fat pad was mostly excised. The knee was flexed and the ACL, PCL, and meniscus were removed. A drill was sent down the center of the femoral canal followed by an intramedullary lynette. Off that lynette a distal femoral cutting block was placed. 9 mm was resected off the distal femur at 5 of valgus. A posterior referencing AP sizing guide was then placed on the distal femur. The femur measured to be a size 7. 2 drill holes were placed in 3 of external rotation. A 4-in-1 cutting block was then impacted into place. Anterior, posterior, and chamfer cuts were then made. The proximal tibia was then exposed. An external tibial alignment guide was placed. A tibial cut guide was then anchored in place and the proximal tibia was then resected. The posterior aspect of the knee was then opened up and any additional meniscus fragments and osteophytes were removed. The tibia measured to be a size E. The tibial plate was then placed in the appropriate rotation and the tibia was drilled and punched. Trial components were then placed. I used a size 12 CPS polyethylene insert. The knee was brought through a full range of motion and felt to be stable. The peg holes for the femoral component were then drilled. The patella was then everted and 9 mm was resected off the posterior aspect of the patella. The patella measured to be a size 31 oval. 3 peg holes were then drilled. A trial patella was placed. The knee was once again brought through a full range of motion and felt to be stable. Trial components were then removed. The surrounding soft tissues were injected with 100 cc of an orthopedic pain control cocktail. All components were then cemented into place with Biomet cement. The final polyethylene insert was then snapped into place. Once cement was dry the tourniquet was deflated. Hemostasis was obtained. A dilute betadyne lavage was then done for 3 minutes. The joint was then irrigated with normal saline solution. The subvastus arthrotomy was then closed with #1 Vicryl suture. The skin was closed with 2-0 Vicryl, 3-0V lock suture, and zayda. A soft compressive dressing was placed. She was then transferred to a hospital bed and taken to the postanesthesia care unit in stable condition. She tolerated the procedure well. Zbigniew Tiwari PA-C, was present for the entire procedure. He was critical for patient positioning, prepping, draping, retraction exposure, wound closure and application of sterile dressing. I attest to the content of the Intraoperative Record and any orders documented therein. Any exceptions are noted below.
[2024-04-09] MEDS ORDERED: bisacodyL 10 MG SUPP PR PRN (10:51)
[2024-04-09] MEDS ORDERED: modafiniL 100 MG TAB PO PRN (10:51)
[2024-04-09] MEDS ORDERED: METOCLOPRAMIDE HCL INJ 5 MG/ML 2 ML VIAL IV PRN (10:51)
[2024-04-09] MEDS ORDERED: oxyCODONE HCL IR 5 MG TAB (IMMEDIATE RELEASE) PO PRN (10:51)
[2024-04-09] MEDS ORDERED: NALOXONE HCL 0.4 MG/1 ML VIAL/CARP IV PRN (10:51)
[2024-04-09] MEDS ORDERED: HYDROmorphone INJ 0.5 MG/0.5 ML SYR IV PRN (10:51)
[2024-04-09] MEDS ORDERED: MAGNESIUM HYDROXIDE SUSP 30 ML UDC PO PRN (10:51)
[2024-04-09] MEDS: METOPROLOL SUCC 50MG EXT REL TAB PO SCH (11:15)
[2024-04-09] MEDS: VENLAFAXINE HCL XR 150 MG CAPXR PO SCH (11:15)
[2024-04-09] MEDS: SODIUM CHLORIDE 0.9% 1,000 ML IV SCH (11:16)
[2024-04-09] MEDS: KETOROLAC 30 MG/ML VIAL IV SCH (11:24)
[2024-04-09] MEDS: ASPIRIN 81 MG ECTAB PO SCH (12:43)
[2024-04-09] MEDS: lisinopril 10 MG TAB PO SCH (12:43)
[2024-04-09] MEDS: DOCUSATE SODIUM 100 MG CAP PO SCH (12:44)
[2024-04-09] MEDS: MULTIVITAMIN TAB PO SCH (12:44)
--- NOTE | 2024-04-09 12:50 | XRay Report ---
RIGHT KNEE 2 VIEWS History: Right total knee arthroplasty. Degenerative arthritis. Postop. FINDINGS: The patient is status post a right total knee arthroplasty. The hardware is intact. No frac ture or dislocation. Skin zayda are in place. IMPRESSION: Right total knee arthroplasty. No evidence for hardware complication. ACT 112: Negative or not required by law. Electronically signed by: Pietro Bauer M.D. 04/09/2024 12:48 PM
--- NOTE | 2024-04-09 14:27 | Anesthesiology Progress Note ---
Date of Service April 09, 2024 Anesthesia Post Procedure Vital Signs Vital Signs: Temp Pulse Pulse Resp BP Pulse Ox O2 Del Method 04/09/24 13:27 36.7 C 85 20 102/61 96 Room Air 04/09/24 12:25 37.1 C 87 18 137/79 95 Room Air 04/09/24 10:53 74 16 122/81 97 Room Air 04/09/24 10:25 36.6 C 76 18 112/76 94 Room Air 04/09/24 10:15 78 12 122/68 96 Room Air 04/09/24 10:05 36.7 C 76 18 101/65 99 Room Air 04/09/24 09:55 77 16 115/74 95 Room Air 04/09/24 09:45 73 14 113/76 97 Oxymask 04/09/24 09:38 36.6 C 79 20 112/53 L 94 Oxymask 04/09/24 06:52 Room Air 04/09/24 06:52 36.7 C 84 20 141/91 H 96 Room Air O2 Flow Rate 04/09/24 13:27 04/09/24 12:25 04/09/24 10:53 04/09/24 10:25 04/09/24 10:15 04/09/24 10:05 04/09/24 09:55 04/09/24 09:45 4 04/09/24 09:38 4 04/09/24 06:52 04/09/24 06:52 Pain Intensity Right Knee: Pain Intensity: 0 Transfer of Care Handoff Completed per policy Notes Mental Status: alert / awake / arousable and participated in evaluation Patient Amnestic to Procedure: Yes Nausea / Vomiting: adequately controlled Pain: adequately controlled Airway Patency, RR, SpO2: stable & adequate BP & HR: stable & adequate Hydration State: stable & adequate Neuraxial Anesthesia: was administered and sensory block is resolving Anesthetic Complications: no major complications apparent and Pt Satisfied with anesthetic care
[2024-04-09] MEDS: FEXOFENADINE 60 MG TAB PO PRN (16:09)
[2024-04-09] MEDS: GABAPENTIN 300 MG CAP PO SCH (20:01)
[2024-04-09] MEDS: SENNA 8.6 MG TAB PO SCH (20:01)
[2024-04-09] MEDS: traZODone HCL 100 MG TAB PO SCH (21:30)
[2024-04-10] MEDS: dexAMETHasone 4 MG TAB PO SCH (08:27)
--- NOTE | 2024-04-10 08:39 | Orthopedic Progress Note ---
Date of Service April 10, 2024 Assessment & Plan (1) Status post right knee replacement: Overall she is doing very well. She is not having much pain in the right knee. She will be seen by physical therapy today for ambulation and range of motion exercises. She is on aspirin for DVT prophylaxis. She can be discharged home later today. She will follow-up orthopedics in 2 weeks. Subjective Rachael was seen and examined at bedside this morning. Overall she is doing fairly well. She is not having much pain in the right knee. She has been up and ambulating to the bathroom. She has no complaints.. Review of Systems All systems reviewed & are unremarkable except as noted in HPI & below. Physical Exam On physical examination of the right knee, the dressing is clean and dry. Her leg is out full extension. She has active dorsiflexion plantarflexion of her right ankle.. Results & Data Results & Data Laboratory Results . Diagnostic Findings Postoperative x-rays of the right knee show the prosthesis to be in anatomic alignment without any evidence of fracture complication, or loosening.. PG Care Time/CCT Total # of Minutes Spent Total Time Spent with Patient: Total time spent is greater than 50% in coordination of care (as documented) at patient's floor/unit and/or counseling patient: Coding Level of Care Code 45815 Post Operative Follow-Up Diagnoses Status post right knee replacement Z96.651
--- NOTE | 2024-04-10 08:39 | Discharge Summary ---
Date of Service April 10, 2024 Admission HPI (Per Admitting) Rachael is a pleasant 53-year-old female who has been dealing with chronic increasing right knee pain. 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 Her knee has been bothering her for 10 years. She has failed conservative treatment including injections and therapy. After failing extensive conservative treatment, she has elected proceed with a right total knee arthroplasty. Admission Exam (Per Admitting) On physical examination of the right knee, she has good range of motion 0-120 Trae. She has tenderness palpation of the distal femoral condyle.. Principal Diagnosis Same as "Discharge Diagnosis" noted below under Discharge Instructions. Discharge Exam On physical examination of the right knee, the dressing is clean and dry. Her leg is out full extension. She has active dorsiflexion plantarflexion of her right ankle.. Discharge Data Procedures Performed Operation Date: 04/09/24 08:00 Actual Procedures p Right Total Knee Arthroplasty(Right) - Zbigniew Trinh DO Ordered Studies 04/09/24 05:00 US - OR guided needle placemen Routine Hospital Course (1) Status post right knee replacement: On April 09, 2024 Rachael arrived at [facility] and underwent a right knee replacement without complication. She had a spinal anesthetic. Postoperatively she was started on aspirin for DVT prophylaxis and transferred to the general orthopedic floors. Her hospital course was uneventful. On postop day #1, her vital signs were stable and her pain was well-controlled. She was able to participate well with physical therapy doing ambulation and range of motion exercises. She was then discharged to home. She will follow-up orthopedics in 2 weeks. PG Care Time/CCT Total # of Minutes Spent Total Time Spent with Patient: Total time spent is greater than 50% in coordination of care (as documented) at patient's floor/unit and/or counseling patient: Discharge Plan Discharge Items Patient Disposition: Home - Self-Care Reason For Visit: Right Knee Degenerative Joint Disease Discharge Diagnosis: Right knee replacement Activity: Per Instructions section Non-emergency contact: Surgeon Call non-emergency contact if: your wound has increased redness and your wound has increased drainage Follow-up/Referrals: Suri Osorio MD [Primary Care Provider] - Diet: Regular Addtl Attending Provider Instructions: Activity and Therapy Recommendations: * If you are using [facility] then therapy will be provided at your home until they feel you have accomplished all of your goals. * If you are using [facility] then Physical Therapy will be provided until they feel you are ready to start Outpatient Physical Therapy. * If you are not using home therapy then Outpatient Physical Therapy should start about 3-5 days from your day of surgery. Therapy will last about 6-10 weeks * It is important not to put a pillow under your knee when you are relaxing or sleeping. It is just as important to make sure you are getting your knee perfectly straight as it is to regain your knee bend. * You were shown a series of exercises in the hospital. Do these exercises three times each day including the exercises you were shown in physical therapy. * Get up and walk several times each day. For the first four weeks, try not to stand or walk for more than one hour at a time. If you do stand or walk for more than one hour, you will not hurt anything, but your leg will likely swell. * As you feel comfortable, you may change from the walker or crutches to a cane and then to independent walking. Medications: * Narcotic You will likely be sent home from the hospital with a prescription for the narcotic pain medication that worked best throughout your stay. * Cefadroxil -take the antibiotic twice a day for 10 days to help prevent infection. * Aspirin Most patients will be required to take Aspirin 81mg twice a day for 6 weeks after surgery. This is obtained [id number] and a prescription is not necessary. * Other medications may be prescribed for specific circumstances. If you have any questions, please call the office at . * Resume previous home medications unless otherwise instructed TEDs/Elastic Stockings: The white elastic stockings help limit swelling and prevent blood clots from forming in your legs.~ The more you wear them, the more they work. Wear them for six weeks. Dressing Care: The dressing can be changed after physical therapy on postop day #1. Daily dry dressing changes for a few days, especially if the incision is still draining some. If the incision is not draining then you may leave the zayda open to air. If there is a little bit of drainage or if the zayda are getting stuck on your clothing then cover the incision with a dry dressing. The zayda will be removed at your 2 week follow-up appointment. Showering: You may shower 5 days from the day of surgery as long as the incision is no longer draining. You may shower with the zayda exposed. Let soapy water run over the zayda and pat them dry. Do not scrub or soak the incision. Things To Watch For: * Drainage from the incision site that occurs more than one week after your surgery. * Increased redness at the incision site. * Fever above 102 degrees Fahrenheit. * Unusual chest pain or shortness of breath. * Call [facility] at with any of the above problems Follow-Up Visit: Follow-up with Dr. Trinh's PA (Zbigniew Tiwari) 2-3 weeks after your day of surgery. He will remove your zayda and answer any questions. If you have any additional questions or concerns, Dr Trinh is usually in the office at the same time and will be available An appointment was probably scheduled when you signed-up for surgery in the office. If you have any questions call Office Instructions: More detailed instructions as well as Frequently Asked Questions were provided in a folder by our office when you signed-up for surgery. Please review these instructions when you get home. If you have any further questions or concerns, please feel free to call the office at [phone] Pending Studies at Discharge: No Stand-Alone Forms: [facility], Smoking Cessation Medications and DC Order Prescriptions: New oxycodone 5 mg Tablet 5 mg PO Q4H PRN (Reason: pain) Qty: 30 0RF cefadroxil 500 mg capsule 500 mg PO BID 10 Days Qty: 20 0RF aspirin 81 mg Tablet,Delayed Release (Dr/Ec) 81 mg PO BID 42 Days Qty: 0 0RF Continued oxycodone 5 mg tablet 5 mg PO Q6 PRN (Reason: pain) Qty: 15 0RF meloxicam 15 mg tablet 15 mg PO DAILY Qty: 30 2RF metoprolol succinate 200 mg tablet extended release 24 hr 200 mg PO QAM venlafaxine 150 mg Tablet Extended Release 24hr 300 mg PO QAM modafinil 100 mg tablet 200 mg PO DAILY PRN (Reason: Drowsiness) lisinopril 10 mg Tablet 10 mg PO QAM valacyclovir 500 mg tablet 500 mg PO QAM PRN (Reason: cold sores) dicyclomine 10 mg Capsule 10 mg PO BID PRN (Reason: Abdominal Pain) trazodone 100 mg Tablet 100 mg PO HS gabapentin 300 mg Tablet 300 mg PO HS Discharge Orders: Discharge Order (Routine); Ordered 04/10/24 Ordered By: Zbigniew Trinh Admission Data Admit Date/Time: 04/09/24 08:32 Attending Provider: Zbigniew Trinh Admit Provider: Zbigniew Trinh Primary Care Provider: Suri Osorio
== END 2024-04-10 12:01 | disposition home or self-care (01) ==
LOC: ASU 06:32 → 3E 06:32